=== PATIENT | female | born 1950 | race American Indian/Alaskan Native ===

== ENCOUNTER 2017-04-18 13:26 | Emergency (ER) | payer MEDICARE, OTHER ==
[~2017-04-18] VITALS: Ht 165.1 cm; Wt 57.1 kg
[~2017-04-18 13:26] MED LIST: ASPIR 8181 MG PO; ASPIRIN EC81 MG PO; AZITHROMYCIN250 MG PO; CIPRO500 MG PO; CLINDAMYCIN HC300 MG PO; CODEINE-GUAIFE120 ML PO; COL-RITE100 MG PO; COLACE100 MG PO; COREG CR10 MG PO; COREG CR20 MG PO; CYCLOBENZAPRINE5 MG PO; FENTANYL1 EAC2 TD; FENTANYL1 EAC5 TD; FOLBEE PLUS TABL5 MG PO; IPRAT-ALBUT 0.5-3 ML INH; LEVAQUIN500 MG PO; LOSARTAN POTASS25 MG PO; LYRICA50 MG PO; MAGNESIUM500 MG PO; MIDODRINE HCL10 MG PO; MIRALAX17 GM PO; NORCO 10-325 T1 EACH PO; NORCO 5-325 TA1 EACH PO; ONDANSETRON HCL4 MG PO; OXYCONTIN20 MG PO; RENVELA800 MG PO; SENSIPAR30 MG PO; SENSIPAR60 MG PO; TAMIFLU6 MG/1 ML PO; TESSALON PERLE100 MG PO; TIZANIDINE HCL2 M1 PO; VITAMIN D5000 UNIT PO; WARFARIN SODIUM5 MG PO; ZOFRAN8 MG PO; [UNRECOGNIZED DRUG - OTHER] PO
== END 2017-04-18 15:04 | disposition short-term general hospital (02) ==
LOC: ED 13:26
DX: D68.32 Hemorrhagic disorder due to extrinsic circulating anticoagulants (principal); T45.515A Adverse effect of anticoagulants, initial encounter; I13.2 Hypertensive heart and chronic kidney disease with heart failure and with stage 5 chronic kidney disease, or end stage renal disease; N18.6 End stage renal disease; Z99.2 Dependence on renal dialysis; I42.0 Dilated cardiomyopathy; I50.9 Heart failure, unspecified; E87.5 Hyperkalemia; Z86.74 Personal history of sudden cardiac arrest; Z95.0 Presence of cardiac pacemaker; Z95.810 Presence of automatic (implantable) cardiac defibrillator; Z90.49 Acquired absence of other specified parts of digestive tract; Z88.0 Allergy status to penicillin; Z88.1 Allergy status to other antibiotic agents; Z88.8 Allergy status to other drugs, medicaments and biological substances; Z79.899 Other long term (current) drug therapy; Z79.891 Long term (current) use of opiate analgesic; Z79.01 Long term (current) use of anticoagulants; Z79.82 Long term (current) use of aspirin
CPT/HCPCS: 99285

== ENCOUNTER 2017-04-24 19:50 | Emergency (ER) | payer MEDICARE, OTHER ==
[~2017-04-24] VITALS: Ht 165.1 cm; Wt 57.1 kg
== END 2017-04-24 22:32 | disposition home or self-care (01) ==
LOC: ED 19:50
DX: T82.838A Hemorrhage due to vascular prosthetic devices, implants and grafts, initial encounter (principal); I10 Essential (primary) hypertension; Z79.01 Long term (current) use of anticoagulants; Z95.0 Presence of cardiac pacemaker; Z95.1 Presence of aortocoronary bypass graft; Z88.1 Allergy status to other antibiotic agents; Z88.0 Allergy status to penicillin; Z88.8 Allergy status to other drugs, medicaments and biological substances; Z91.041 Radiographic dye allergy status; Z79.899 Other long term (current) drug therapy
CPT/HCPCS: 36415; 85025; 85610; 85730; 99283

== ENCOUNTER 2017-04-29 16:54 | Emergency (ER) | payer MEDICARE, OTHER ==
[~2017-04-29] VITALS: Ht 165.1 cm; Wt 52.2 kg
== END 2017-04-29 20:30 | disposition home or self-care (01) ==
LOC: ED 16:54
DX: S60.222A Contusion of left hand, initial encounter (principal); D69.6 Thrombocytopenia, unspecified; T45.515A Adverse effect of anticoagulants, initial encounter; D68.32 Hemorrhagic disorder due to extrinsic circulating anticoagulants; I13.2 Hypertensive heart and chronic kidney disease with heart failure and with stage 5 chronic kidney disease, or end stage renal disease; N18.6 End stage renal disease; Z79.01 Long term (current) use of anticoagulants; I50.9 Heart failure, unspecified; I42.0 Dilated cardiomyopathy; Z86.74 Personal history of sudden cardiac arrest; E87.6 Hypokalemia; Z95.0 Presence of cardiac pacemaker; Z88.0 Allergy status to penicillin; Z88.1 Allergy status to other antibiotic agents; Z88.8 Allergy status to other drugs, medicaments and biological substances; Z79.899 Other long term (current) drug therapy; Z79.82 Long term (current) use of aspirin; X58.XXXA Exposure to other specified factors, initial encounter
CPT/HCPCS: 36415; 85025; 85610; 99283

== ENCOUNTER 2017-07-15 06:24 | Emergency (ER) | payer MEDICARE, OTHER ==
[~2017-07-15] VITALS: Ht 165.1 cm; Wt 52.2 kg
--- NOTE | 2017-07-15 08:18 | EKG ---
[facility] [address] [address] [place] [address] Signed Normal sinus rhythm Possible Left atrial enlargement Right axis deviation Pulmonary disease pattern Septal infarct , age undetermined Abnormal ECG When compared with ECG of 23-OCT-2016 17:29, Septal infarct is now present T wave inversion less evident in Lateral leads QT has shortened Confirmed by SHANNON MELO MD ([id number]) on 07/15/2017 8:18:21 AM Electronically Signed By: SHNANON MELO MD 07/15/17 0818 PATIENT NAME: FERNANDA BLOCK Electrocardiogram DATE OF : 52 PHYSICIAN: SHANNON MELO MD REPORT #: [id number] REPORT IS CONFIDENTIAL AND NOT TO BE RELEASED WITHOUT AUTHORIZATION
[2017-07-15] MEDS ORDERED: FUROSEMIDE40 MG PO (10:40)
[2017-07-16] MEDS ORDERED: FOLBEE PLUS TABL5 MG PO (21:44)
[2017-07-16] MEDS ORDERED: FOSAMAX70 MG PO (21:45)
[2017-07-16] MEDS ORDERED: IPRAT-ALBUT 0.5-3 ML INH (21:46)
[2017-07-16] MEDS ORDERED: RENVELA800 MG PO (21:48)
[2017-07-16] MEDS ORDERED: CYCLOBENZAPRINE5 MG PO (21:49)
[2017-07-16] MEDS ORDERED: MUCINEX600 MG PO (21:50)
== END 2017-07-15 10:58 ==
LOC: ED 06:24
DX: R06.02 Shortness of breath (principal); M54.9 Dorsalgia, unspecified; G89.29 Other chronic pain; E87.1 Hypo-osmolality and hyponatremia; N18.6 End stage renal disease; I42.0 Dilated cardiomyopathy; I13.2 Hypertensive heart and chronic kidney disease with heart failure and with stage 5 chronic kidney disease, or end stage renal disease; I50.9 Heart failure, unspecified; D63.1 Anemia in chronic kidney disease; Z99.2 Dependence on renal dialysis; Z86.74 Personal history of sudden cardiac arrest; Z88.0 Allergy status to penicillin; Z88.1 Allergy status to other antibiotic agents; Z88.8 Allergy status to other drugs, medicaments and biological substances; Z79.51 Long term (current) use of inhaled steroids; Z79.82 Long term (current) use of aspirin; Z79.899 Other long term (current) drug therapy; I95.9 Hypotension, unspecified
CPT/HCPCS: 71010; 80053; 83735; 93005; 93010; 96360; 99283; J7040

== ENCOUNTER 2017-07-16 21:22 | Emergency (ER) | payer MEDICARE, OTHER ==
[~2017-07-16] VITALS: Ht 165.1 cm; Wt 52.2 kg
[~2017-07-16 21:22] MED LIST changes: +FUROSEMIDE40 MG PO
[2017-07-16] MEDS ORDERED: FOLBEE PLUS TABL5 MG PO (21:44)
[2017-07-16] MEDS ORDERED: FOSAMAX70 MG PO (21:45)
[2017-07-16] MEDS ORDERED: IPRAT-ALBUT 0.5-3 ML INH (21:46)
[2017-07-16] MEDS ORDERED: RENVELA800 MG PO (21:48)
[2017-07-16] MEDS ORDERED: CYCLOBENZAPRINE5 MG PO (21:49)
[2017-07-16] MEDS ORDERED: MUCINEX600 MG PO (21:50)
== END 2017-07-17 02:36 ==
LOC: ED 21:22
DX: J40 Bronchitis, not specified as acute or chronic (principal); I13.0 Hypertensive heart and chronic kidney disease with heart failure and stage 1 through stage 4 chronic kidney disease, or unspecified chronic kidney disease; N18.9 Chronic kidney disease, unspecified; I50.9 Heart failure, unspecified; D64.9 Anemia, unspecified; E87.5 Hyperkalemia; Z95.1 Presence of aortocoronary bypass graft; Z95.0 Presence of cardiac pacemaker; Z88.1 Allergy status to other antibiotic agents; Z88.0 Allergy status to penicillin; Z88.8 Allergy status to other drugs, medicaments and biological substances; Z91.041 Radiographic dye allergy status; Z79.899 Other long term (current) drug therapy; Z79.82 Long term (current) use of aspirin; Z99.2 Dependence on renal dialysis
CPT/HCPCS: 36415; 71010; 80053; 83880; 85025; 99285

== ENCOUNTER → 2017-07-19 | Emergency (ER) | payer MEDICARE, OTHER ==
[~2017-07-19] VITALS: Ht 165.1 cm; Wt 52.2 kg
[~2017-07-19] MED LIST changes: +FOSAMAX70 MG PO; +MUCINEX600 MG PO
== END ==
LOC: ED 17:20
DX: I13.0 Hypertensive heart and chronic kidney disease with heart failure and stage 1 through stage 4 chronic kidney disease, or unspecified chronic kidney disease (principal); N18.9 Chronic kidney disease, unspecified; E87.70 Fluid overload, unspecified; R06.00 Dyspnea, unspecified; I50.9 Heart failure, unspecified; D63.1 Anemia in chronic kidney disease; E78.5 Hyperlipidemia, unspecified; Z95.0 Presence of cardiac pacemaker; Z95.1 Presence of aortocoronary bypass graft; Z88.1 Allergy status to other antibiotic agents; Z88.0 Allergy status to penicillin; Z88.8 Allergy status to other drugs, medicaments and biological substances; Z91.041 Radiographic dye allergy status; Z79.899 Other long term (current) drug therapy; Z79.82 Long term (current) use of aspirin
CPT/HCPCS: 71010; 80053; 83880; 84484; 99285